=== PATIENT | female | born 2000 ===

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

== ENCOUNTER 2018-05-13 06:20 | Inpatient (IN) | payer OTHER ==
[~2018-05-13] VITALS: Ht 152.4 cm; Wt 60.3 kg
[~2018-05-13 06:20] MED LIST changes: +MACROBID 100 M100 MG PO
== END 2018-05-15 13:30 | DRG 775 ==
LOC: LDR 06:20 → OB/GYN 06:20
PROC: 0KQM0ZZ Repair Perineum Muscle, Open Approach (ICD-10-PCS; principal; 2018-05-13)
PROC: 10E0XZZ Delivery of Products of Conception, External Approach (ICD-10-PCS; 2018-05-13)
PROC: 4A1HXCZ Monitoring of Products of Conception, Cardiac Rate, External Approach (ICD-10-PCS; 2018-05-13)
PROC: 4A033R1 Measurement of Arterial Saturation, Peripheral, Percutaneous Approach (ICD-10-PCS; 2018-05-13)
DX: O70.1 Second degree perineal laceration during delivery (principal); Z37.0 Single live birth; Z3A.39 39 weeks gestation of pregnancy